=== PATIENT | male | born 1975 | race Caucasian/White ===

== ENCOUNTER 2022-01-06 14:33 | Emergency (ER) | payer OTHER ==
[~2022-01-06 14:33] MED LIST: AMOCLA500 PO; ATENOLOL-? DOSE; CYCL10 PO; Flexeril 10 mg10 MG PO; HYDACE5 PO; IBUP600 PO; LAMO100 PO; LEVSOD100 PO; LITH300C; LITH300CA PO; LORA10 PO; Lithium Carbon150 MG PO; NAPR500 PO; Naprosyn500 MG PO; OXYACE5T PO; PERM5TC TOP; PRED10 PO; PRED20 PO; PROACE100 PO; QUET100 PO; SIMV40 PO; Ultram50 MG PO; VENL150ER PO
[2022-01-06] MEDS ORDERED: FURO40 PO (19:09)
[2022-01-06] MEDS ORDERED: METF500C PO (19:10)
[2022-01-06] MEDS ORDERED: TOPROL XL50 M1 (19:11)
[2022-01-06] MEDS ORDERED: TAMS.4ER PO (19:11)
[2022-01-06] MEDS ORDERED: K-Dur20 MEQ PO (19:12)
[2022-01-06] MEDS ORDERED: FAMO40 (19:12)
[2022-01-06] MEDS ORDERED: NAPR500EC PO (19:12)
[2022-01-06] MEDS ORDERED: HYDHCL25 PO (19:14)
[2022-01-06] MEDS ORDERED: GABA300 PO (19:15)
[2022-01-06] MEDS ORDERED: Budeprion Xl300 MG PO (19:15)
[2022-01-06] MEDS ORDERED: BUPRENORPHIN-N1 EAC1 SL (19:15)
== END 2022-01-06 20:40 | disposition home or self-care (01) ==
DX: R60.0 Localized edema (principal); E11.622 Type 2 diabetes mellitus with other skin ulcer; L97.319 Non-pressure chronic ulcer of right ankle with unspecified severity; Z91.048 Other nonmedicinal substance allergy status; Z79.899 Other long term (current) drug therapy; Z79.84 Long term (current) use of oral hypoglycemic drugs; F17.200 Nicotine dependence, unspecified, uncomplicated

== ENCOUNTER → 2022-01-17 | Outpatient (CLI) | payer OTHER ==
[~2022-01-17] MED LIST changes: +BUPRENORPHIN-N1 EAC1 SL; +Budeprion Xl300 MG PO; +FAMO40; +FURO40 PO; +GABA300 PO; +HYDHCL25 PO; +K-Dur20 MEQ PO; +METF500C PO; +NAPR500EC PO; +TAMS.4ER PO; +TOPROL XL50 M1
[2022-01-18 09:23] LABS: Stool Occult Bld Immuno 1 Negative (NEGATIVE)
== END | disposition home or self-care (01) ==
LOC: LAB SHORT 13:00
PROVIDERS: Registered Nurse
DX: Z12.11 Encounter for screening for malignant neoplasm of colon (principal)
CPT/HCPCS: G0328

== ENCOUNTER → 2022-01-18 | Outpatient (CLI) | payer OTHER | END | disposition home or self-care (01) | LOC: LAB SHORT 13:40 | DX: L08.9 Local infection of the skin and subcutaneous tissue, unspecified (principal) | CPT/HCPCS: 87070; 87075; 87077; 87147; 87186; 87205 ==

== ENCOUNTER 2023-07-23 09:14 | Emergency (ER) | payer MEDICARE, OTHER ==
[~2023-07-23] VITALS: Ht 190.5 cm; Wt 108.9 kg
[2023-07-23 10:01] LABS: BASOPHILS ABSOLUTE AUTO 0.06 K/mm3 (0.00-0.23); BASOPHILS PERCENT AUTO 1 % (0-2); EOSINOPHILS ABSOLUTE AUTO 0.26 K/mm3 (0.00-0.68); EOSINOPHILS PERCENT AUTO 5 % (0-6); Hematocrit 39.7 % (37.0-53.0); Hemoglobin 13.3 g/dL (13.5-17.5); IMMATURE GRAN ABSOLUTE AUTO 0.02 K/mm3 (0.00-0.10); IMMATURE GRAN PERCENT AUTO 0 % (0-1); LYMPHOCYTES ABSOLUTE AUTO 1.23 K/mm3 (0.84-5.20); LYMPHOCYTES PERCENT AUTO 22 % (21-46); MONOCYTES ABSOLUTE AUTO 0.46 K/mm3 (0.16-1.47); MONOCYTES PERCENT AUTO 8 % (4-13); Mean Corpuscular HGB 30.5 pg (26.0-34.0); Mean Corpuscular HGB Conc 33.5 g/dL (31.5-36.5); Mean Corpuscular Volume 91 fL (80-100); Mean Platelet Volume 11.2 fL (9.1-12.4); NEUTROPHILS ABSOLUTE AUTO 3.48 K/mm3 (1.96-9.15); NEUTROPHILS PERCENT AUTO 63 % (41-73); Platelet Count 122 K/mm3 (150-400); RDW Coefficient Variation 12.2 % (11.7-14.2); RDW Standard Deviation 40.9 fL (35.1-46.3); Red Blood Cell Count 4.36 M/mm3 (4.30-5.90); White Blood Cell Count 5.51 K/mm3 (4.00-11.30)
[2023-07-23 10:20] LABS: Albumin, Blood 3.6 g/dL (3.4-5.0); Bilirubin, Total 0.4 mg/dL (0.1-1.0); Bun/Creatinine Ratio 36.3 (12.0-20.0); Calcium, Blood 8.9 mg/dL (8.5-10.1); Creatinine, Blood 0.77 mg/dL (0.60-1.20); Globulin, Blood 3.5 g/dL (2.2-4.0); Potassium, Blood 4.2 mmol/L (3.5-5.5); Total Protein, Blood 7.1 g/dL (6.4-8.2)
[2023-07-23 12:45] VITALS: BP 130/76
== END 2023-07-23 12:55 | disposition home or self-care (01) ==
LOC: ER 09:14
PROVIDERS: Emergency Medicine
DX: R07.9 Chest pain, unspecified (principal); Z79.01 Long term (current) use of anticoagulants
CPT/HCPCS: 71046; 80053; 83690; 83880; 84484; 85025; 85379; 93005; 93010; 99285-25

== ENCOUNTER 2023-10-21 09:46 | Emergency (ER) | payer MEDICARE, OTHER ==
[~2023-10-21] VITALS: Ht 190.5 cm; Wt 154.2 kg
[~2023-10-21 09:46] MED LIST changes: +Percocet 5-3251 EACH PO
[2023-10-21 10:07] VITALS: BP 141/89
[2023-10-21] MEDS ORDERED: Ibuprofen 600 MG Tab PO ONE (10:50)
[2023-10-21] MEDS ORDERED: HYDROcodone 5-APAP 325 TAB PO ONE (11:35)
[2023-10-21] MEDS ORDERED: CRUTCH2 XX (11:54)
[2023-10-21] MEDS ORDERED: Norco 5-325 Ta1 EACH PO (14:13)
== END 2023-10-21 11:58 | disposition home or self-care (01) ==
LOC: ER 09:46
DX: S93.402A Sprain of unspecified ligament of left ankle, initial encounter (principal); E11.40 Type 2 diabetes mellitus with diabetic neuropathy, unspecified; F17.200 Nicotine dependence, unspecified, uncomplicated; X50.1XXA Overexertion from prolonged static or awkward postures, initial encounter; Z79.84 Long term (current) use of oral hypoglycemic drugs; Z79.899 Other long term (current) drug therapy; Z91.048 Other nonmedicinal substance allergy status
CPT/HCPCS: 73610; A9270

== ENCOUNTER → 2024-06-01 | Outpatient (CLI) | payer OTHER ==
[~2024-06-01] MED LIST changes: +CRUTCH2 XX; +Norco 5-325 Ta1 EACH PO
[2024-06-02 18:13] LABS: Microalb/Creat Ratio UR, Rand Unable to Calculate mg/g (0.000-30.000); Microalbumin, Random Urine <5.000 mg/L (0.000-20.000)
== END | disposition home or self-care (01) ==
LOC: LAB 14:25 → LAB SHORT 14:25
PROVIDERS: Family Medicine
DX: E11.21 Type 2 diabetes mellitus with diabetic nephropathy (principal); E11.69 Type 2 diabetes mellitus with other specified complication; E78.5 Hyperlipidemia, unspecified
CPT/HCPCS: 82043; 82570